=== PATIENT | male | born 1965 | race Caucasian/White ===

== ENCOUNTER 2016-08-29 08:46 | Emergency (ER) | payer MEDICAID ==
--- NOTE | 2016-08-29 09:02 | Emergency Department Record ---
History of Present Illness - General Chief Complaint: Abdominal Pain Stated Complaint: HERNIA Time Seen by Provider: 08/29/16 09:01 Source: Patient Mode of Arrival: Ambulatory Limitations: No limitations - History of Present Illness Initial Comments: The patient is here due to a 2 day hx of AP. The pain is located around his periumbilical hernia. He has had his appendix removed years ago and has since had a reducible hernia around his umbilicus. Now for the last 2 days he has been unable to reduce it and is has become painful, swollen, mildly erythematous and tender. He has been nauseated and did vomit once this AM. Complaint: Abdominal pain Onset/Timin -: Days(s) Location: Periumbilical Radiation: None Severity: Moderate Quality: Sharp Consistency: Intermittent Improves With: Rest Worsens With: Movement Associated Symptoms: Denies other symptoms - Related Data Home Medications Medication Instructions Recorded Confirmed Last Taken No Home Med [NO HOME MEDS] 08/29/16 08/29/16 Unknown Allergies Allergy/AdvReac Type Severity Reaction Status Date / Time No Known Drug Allergies Allergy Verified 08/29/16 08:52 Travel Screening - Travel/Exposure Within Last 30 Days Have you traveled within the last 30 days?: No - Travel/Exposure Within Last Year Have you traveled outside the [place] in the last year?: No - Additonal Travel Details Have you been exposed to anyone with a communicable illness?: No - Travel Symptoms Symptom Screening: None Review of Systems Constitutional: Denies: Chills, Fever Eyes: Denies: Eye discharge ENT: Denies: Congestion Respiratory: Denies: Cough, Dyspnea Past Medical History - SOCIAL HISTORY Smoking Status: Current every day smoker Alcohol Use: None Drug Use Detail:: Marijuana - RESPIRATORY Hx Respiratory Disorders: No - CARDIOVASCULAR Hx Cardio Disorders: No - NEURO Hx Neuro Disorders: No - GI Hx GI Disorders: No - Hx Genitourinary Disorders: No - ENDOCRINE Hx Endocrine Disorders: No - MUSCULOSKELETAL Hx Musculoskeletal Disorders: No - PSYCH Hx Psych Problems: No - HEMATOLOGY/ONCOLOGY Hx Hematology/Oncology Disorders: No Family Medical History Any Significant Family History?: No Physical Exam - General General Appearance: Alert, Oriented x3, Cooperative, No acute distress - Head Head exam: Atraumatic, Normocephalic, Normal inspection - Eye Eye exam: Normal appearance, PERRL - Neck Neck exam: Normal inspection, Full ROM. negative: Tenderness - Respiratory Respiratory exam: Normal lung sounds bilaterally. negative: Respiratory distress - Cardiovascular Cardiovascular Exam: Regular rate, Normal rhythm, Normal heart sounds - GI/Abdominal GI/Abdominal exam: Tenderness (There is tenderness, swelling and erythema around a 4x4 cm bulge over the umbilicus.). negative: Soft, Guarding - Back Back exam: Reports: Normal inspection, Full ROM. Denies: Muscle spasm, Rash noted, Tenderness - Neurological Neurological exam: Normal gait. negative: Abnormal gait Course Vital Signs 08/29/16 08:53 Temperature 98.1 F Pulse Rate 94 H Respiratory 18 Rate Blood Pressure 141/97 Pulse Ox 97 - Reevaluation(s) Reevaluation #1: The patient is doing much better after the pain medicine. I did discuss the case with Dr. Waller and he will accept the patient for surgery. 08/29/16 10:02 Reevaluation #2: The patient is doing very well. I did discuss the case with Dr. Waller (Gen Surg) and he would like the patient transferred to [facility] for surgery. The patient understands and agree's with the plan. I did recommend transferring there by Ambulance but he is refusing that and would like to go by car. I explained to him MULTIPLE times he CANNOT eat or drink anything in between hospitals. 08/29/16 10:52 Medical Decision Making - Data Complexity MDM Data: Labs Ordered and/or Reviewed - Lab Data Result diagrams: 08/29/16 09:30 08/29/16 09:30 Disposition Disposition: Transfer Clinical Impression: Strangulated incisional hernia Disposition: Acute Care Hospital Transfer Transfer To: [facility] Reason For Transfer: Gen Surg. Accepting Physician: Christin Time Discussed w/Accepting Physician: 10:54 Condition: (2) Stable Instructions: Abdominal Pain (ED) Forms: Patient Portal Access Time of Disposition: 10:54
[2016-08-29] MEDS ORDERED: HYDROMORPHONE HCL 1 MG/ML CPJ IVP ONE (09:05)
[2016-08-29] MEDS ORDERED: ONDANSETRON HCL IV 4 MG/2 ML VIAL IV ONE (09:05)
[2016-08-29] MEDS ORDERED: 0.9 % SODIUM CHLORIDE 1,000 ML BAG IV ONE (09:05)
[2016-08-29 09:47] LABS: BASO % 0.3 % (0-6); EOS % 0.4 % (0-6); GRAN % 79.1 % (47-80); HEMATOCRIT 51.4 % (42.0-52.0); HEMOGLOBIN 17.6 gm/dl (14.0-18.0); LYMPH % 10.8 % (16-45); MEAN CELL VOLUME 89.2 fl (81-97); MEAN CORPUSCULAR HGB CONC 34.2 g/dl (32-36); MEAN PLATELET VOLUME 10.8 fl (7.4-10.4); MONO % 9.4 % (0-9); PLATELET COUNT 275 K/uL (130-400); RED BLOOD COUNT 5.76 M/uL (4.40-5.70); RED CELL DISTRIBUTION WIDTH 14.1 % (11.5-14.5); WHITE BLOOD COUNT W/O DIFF 18.8 K/uL (4.2-12.2)
[2016-08-29 09:48] LABS: MEAN CORPUSCULAR HEMOGLOBIN 30.5 pg (27-33)
[2016-08-29 09:53] LABS: ALBUMIN 5.3 gm/dL (3.5-5.0); ALKALINE PHOSPHATASE 92 U/L (38-126); ALT/SGPT 31 U/L (21-72); ANION GAP 17.9 (7-16); AST/SGOT 26 U/L (17-59); BILIRUBIN,TOTAL 1.13 mg/dL (0.2-1.3); BLOOD UREA NITROGEN 18 mg/dL (9-20); CARBON DIOXIDE 25.1 mmol/L (22-30); CREATININE 0.8 mg/dL (0.66-1.25); EST GLOMERULAR FILTRATION RATE > 60 ml/min; GLUCOSE,RANDOM 125 mg/dL (70-110); LIPASE 58 U/L (23-300); TOTAL PROTEIN 8.9 gm/dL (6.3-8.2)
== END 2016-08-29 11:14 | disposition short-term general hospital (02) ==
LOC: ER 08:46
DX: K43.0 Incisional hernia with obstruction, without gangrene (principal); R11.2 Nausea with vomiting, unspecified
CPT/HCPCS: 99285 ×2; 96374; 96375; 96361; 83690; 85025; 80076; 80048; J2405; J1170; J7030